=== PATIENT | male | born 1980 | race Caucasian/White ===

== ENCOUNTER 2016-11-24 16:26 | Emergency (ER) | payer SELFPAY ==
[~2016-11-24] VITALS: Ht 188 cm; Wt 78.6 kg
[2016-11-24] MEDS ORDERED: NORCO 5/3251 TABLET PO (18:53)
[2016-11-24] MEDS ORDERED: CLEOCIN300 MG PO (18:53)
[2016-11-24 19:19] VITALS: BP 120/68
== END 2016-11-24 19:32 | disposition home or self-care (01) ==
LOC: EME 16:26
DX: K08.89 Other specified disorders of teeth and supporting structures (principal); K04.7 Periapical abscess without sinus; F17.200 Nicotine dependence, unspecified, uncomplicated
CPT/HCPCS: 99281; 99284